=== PATIENT | female | born 1970 ===

== ENCOUNTER → 2022-04-07 | Outpatient (REF) | payer OTHER | LOC: M LABCFH 12:28 | PROVIDERS: ATTEND Physician Assistant | DX: Z12.4 Encounter for screening for malignant neoplasm of cervix (principal) ==

== ENCOUNTER → 2024-06-17 | Outpatient (REF) | payer OTHER | LOC: M LAB REF 15:12 | PROVIDERS: ATTEND Physician Assistant | DX: Z11.4 Encounter for screening for human immunodeficiency virus [HIV] (principal); Z11.51 Encounter for screening for human papillomavirus (HPV) ==

== ENCOUNTER → 2025-07-01 | Outpatient (REF) | payer OTHER | LOC: M CFLAB 13:07 | DX: Z12.4 Encounter for screening for malignant neoplasm of cervix (principal) ==